=== PATIENT | female | born 1985 | race Caucasian/White ===

== ENCOUNTER 2020-03-05 09:38 | Emergency (ER) | payer OTHER ==
[~2020-03-05] VITALS: Ht 167.6 cm; Wt 123.2 kg
[2020-03-05] MEDS ORDERED: FOLI0.4T2 PO (09:56)
[2020-03-05] MEDS ORDERED: BUPR150T13 PO (09:56)
[2020-03-05] MEDS ORDERED: SERT100T32 PO (09:56)
[2020-03-05] MEDS ORDERED: ASPI-515 PO (09:56)
[2020-03-05] MEDS ORDERED: SODIUM CHLORIDE FLUSH 10ML SYR IVF ONE (10:00)
[2020-03-05] MEDS ORDERED: SODIUM CHLORIDE 0.9% 1,000ML IVBOLUS ONE (10:00)
--- NOTE | 2020-03-05 10:02 | NUR ---
Pt ambulated to room, smooth steady gait, MAEx4, RESP WNL, VSS, Significant other at bedside, P/W/D, NAD. Mukund ROMO at bs, for eval and discussing POC. ALONDRA.
--- NOTE | 2020-03-05 10:11 | NUR ---
Pt to [place] via [place], JUAN, RESP WNL.
[2020-03-05 10:21] LABS: BASOPHILS # (AUTO) 0.03 x10^3/uL (0-0.1); BASOPHILS % (AUTO) 1 % (0-1); EOSINOPHILS # (AUTO) 0.05 x10^3/uL (0-0.4); EOSINOPHILS % (AUTO) 1 % (1-7); LYMPHOCYTES # (AUTO) 1.22 x10^3/uL (1-3.4); LYMPHOCYTES % (AUTO) 21 % (22-44); MD NO; MEAN CORPUSCULAR HEMOGLOBIN 28.4 pg (27.0-34.8); MEAN CORPUSCULAR VOLUME 86.1 fL (80-100); MEAN PLATELET VOLUME 9.2 fL (7.4-10.4); MONOCYTES # (AUTO) 0.37 x10^3/uL (0.2-0.8); MONOCYTES % (AUTO) 6 % (2-9); NEUTROPHILS # (AUTO) 4.19 x10^3/uL (1.8-6.8); NEUTROPHILS % (AUTO) 71 % (42-75); PLATELET COUNT 313 x10^3/uL (130-400); RED BLOOD COUNT 4.75 x10^6/uL (3.82-5.3); RED CELL DISTRIBUTION WIDTH 14.8 % (9.6-15.2)
[2020-03-05 10:30] LABS: ALANINE AMINOTRANSFERASE 23 U/L (12-78); ALBUMIN 3.6 g/dL (3.4-5.0); ANION GAP 4 mmol/L (5-15); CALCIUM 9.2 mg/dL (8.5-10.1); CHLORIDE 108 mmol/L (98-107); CREATININE 0.87 mg/dL (0.55-1.02)
[2020-03-05 10:34] LABS: ALKALINE PHOSPHATASE 88 U/L (45-117); BILIRUBIN,TOTAL 0.4 mg/dL (0.2-1.0); TOTAL PROTEIN 7.8 g/dL (6.4-8.2)
--- NOTE | 2020-03-05 10:52 | NUR ---
Pt back from [place], significant other at bs, P/W/D, NAD, RESP WNL, VSS see chart, [facility], denies additional needs at this time. WCTM.
--- NOTE | 2020-03-05 11:42 | NUR ---
Patient and spouse given discharge instructions and they have confirmed that they understand the instructions. Patient ambulatory with steady gait. denies additional needs or questions at this time.
[2020-03-05 11:44] VITALS: BP 123/79
== END 2020-03-05 11:49 | disposition home or self-care (01) ==
LOC: ED 11:31
DX: N83.292 Other ovarian cyst, left side (principal); N93.8 Other specified abnormal uterine and vaginal bleeding; N92.0 Excessive and frequent menstruation with regular cycle; R10.9 Unspecified abdominal pain
CPT/HCPCS: 36415; 76830; 80053; 84703; 85025; 99284